=== PATIENT | female | born 1955 | race Two or more races ===

== ENCOUNTER 2021-06-18 11:45 | Outpatient (CLI) | payer OTHER | END 2021-06-18 11:46 | disposition home or self-care (01) | LOC: NUCLEAR 11:45 | DX: M81.0 Age-related osteoporosis without current pathological fracture (principal) ==

== ENCOUNTER 2022-09-10 08:54 | Outpatient (CLI) | payer OTHER | END 2022-09-10 09:09 | disposition home or self-care (01) | LOC: MAMO-SONO 08:54 | DX: N64.4 Mastodynia (principal); Z12.31 Encounter for screening mammogram for malignant neoplasm of breast; M25.511 Pain in right shoulder ==

== ENCOUNTER 2024-08-18 08:41 | Outpatient (CLI) | payer OTHER ==
[~2024-08-18 08:41] MED LIST: ANASTROZOLE1 MG; EFFEXOR XR150 MG; LORATADINE; SINVASTATIN; SYNTHROID100 MCG; [UNRECOGNIZED DRUG - OTHER]
== END 2024-08-19 08:44 | disposition home or self-care (01) ==
LOC: SONOGRAMA 08:41
PROVIDERS: ATTEND General Practice
DX: K76.0 Fatty (change of) liver, not elsewhere classified (principal)

== ENCOUNTER 2024-08-25 12:07 | Outpatient (CLI) | payer OTHER | END 2024-08-25 12:15 | disposition home or self-care (01) | LOC: MAMO-SONO 12:07 | PROVIDERS: ATTEND Internal Medicine | DX: C50.811 Malignant neoplasm of overlapping sites of right female breast (principal); Z79.811 Long term (current) use of aromatase inhibitors; M25.572 Pain in left ankle and joints of left foot; Z12.31 Encounter for screening mammogram for malignant neoplasm of breast ==

== ENCOUNTER 2024-09-29 12:35 | Outpatient (CLI) | payer OTHER | END 2024-09-29 12:37 | disposition home or self-care (01) | LOC: NUCLEAR 12:35 | PROVIDERS: ATTEND Internal Medicine | DX: M81.8 Other osteoporosis without current pathological fracture (principal) ==